=== PATIENT | male | born 1960 | race Caucasian/White ===

== ENCOUNTER 2017-06-16 14:46 | Observation (INO) ==
[2017-06-16] MEDS ORDERED: Piperacillin/Tazobactam 3.375 GM in Water for inj. (sterile) 20 ML IVP ONE (17:07)
--- NOTE | 2017-06-16 17:10 | Emergency Department Note ---
Disposition Clinical Impression: Diabetic foot infection Cellulitis Qualifiers: Site of cellulitis: extremity Site of cellulitis of extremity: lower extremity Laterality: left Qualified Code(s): L03.116 - Cellulitis of left lower limb Disposition: Admitted As Inpatient Condition: Good Referrals: Maverick Zarate MD [Primary Care Provider] - Forms: ED Satisfaction Letter General Adult HPI - General Chief complaint: ED Extremity Problem,Nontraumatic Stated complaint: Foot ulcer Time Seen by Provider: 06/16/17 16:41 Source: patient, family Limitations: no limitations Nursing Notes Reviewed: Yes Vital Signs Reviewed: Yes - History of Present Illness HPI Narrative: 57 y/o male who reports that he has had a foot wound on his left foot for 2 weeks. He has diabetes and neuropathy but has not had chronic foot wounds before. Went to see Dr Samaniego today with podiatry and was sent to the ED for admission. He reports Dr Samaniego started to debride the wound and stopped when he decided it would be best to do in the OR tomorrow. Was sent for admission. Redness is present on the foot only. Only other medical problem is HTN. He does not have much pain at rest. no fever. Otherwise feeling well. No leg pain or redness. Pain Scale: 0 Improves with: nothing Worsens with: other (shoes) Associated symptoms: Reports: denies other symptoms Treatments Prior to Arrival: none - Related Data Home Medications Medication Instructions Recorded Confirmed Glimepiride 04/02/15 04/02/15 Kombiglyze Xr 2.5-1,000 mg Tab 04/02/15 04/02/15 Allergies Allergy/AdvReac Type Severity Reaction Status Date / Time No Known Allergies Allergy Verified 04/02/15 11:08 All systems ED: reviewed and negative except as stated. Constitutional: Denies: fever ENT ED: Denies: throat pain Cardiovascular: Denies: chest pain Respiratory: Denies: cough Integumentary: Reports: rash Hematological/Lymphatic: Denies: easy bleeding Past Medical History - Past Medical History Medical history: Reports: diabetes, hypertension Psychiatric history: Reports: no psych history - Social History Smoking Status: Never smoker Smokeless Tobacco Status: No Alcohol use: Reports: none Drug use: Reports: none Physical Exam - General Limitations: no limitations General appearance: alert - Head Head exam: atraumatic - Eye Eye exam: Present: normal appearance, PERRL - ENT ENT exam: normal exam, normal oropharynx - Neck Neck exam: Present: normal inspection, full ROM - Chest Chest inspection: Present: normal inspection - Respiratory Respiratory exam: Present: normal lung sounds bilaterally. Absent: respiratory distress - Cardiovascular Cardiovascular exam: Present: regular rate, normal rhythm - Abdominal Exam Abdominal exam: Present: soft, Non-Tender - Extremities Exam Extremities exam: Present: other (diabetic foot ulcer with surrounding erythema/ edema to the lateral left foot at the level of the MTP. Erythema does not make it quite to the ankle. No crepitus.) - Neurological Exam Neurological exam: Present: alert, oriented X3 - Psychiatric Psychiatric exam: Present: normal affect, normal mood - Skin Skin exam: Present: warm Course Course Narrative: Spoke with Dr Braun from podiatry who recommended vancomycin and zosyn for antibiotic coverage. Will obtain foot radiograph and basic labs and admit to the hospitalist. Plan is for the OR tomorrow for debridement. Vitals are stable. He is very well appearing. Vital Signs Temperature 98.7 F 06/16/17 15:08 Pulse Rate 82 06/16/17 15:08 Respiratory Rate 18 06/16/17 15:08 Blood Pressure 150/81 06/16/17 15:08 O2 Sat by Pulse Oximetry 99 06/16/17 15:08 Temperature 98.7 F 06/16/17 15:08 Pulse Rate 87 06/16/17 16:50 Respiratory Rate 16 06/16/17 16:50 Blood Pressure 151/85 06/16/17 16:50 O2 Sat by Pulse Oximetry 96 06/16/17 16:50 Oxygen Delivery Oxygen Delivery Room Air Medical Decision Making - Medical Records Medical records reviewed: Yes I reviewed the patient's medical records. - Lab Data Lab results reviewed: Yes I reviewed the patient's lab results. - Radiology Data Radiology results reviewed: Yes I reviewed the patient's radiology results.
[2017-06-16] MEDS ORDERED: Vancomycin 1,500 MG in D5% in Water 250 ML IVPB ONE (17:30)
[2017-06-16 17:47] LABS: Basophils # 0.1 K/mcL (0.0-0.2); Basophils % 0.7 %; Eosinophils # 0.1 K/mcL (0.0-0.6); Eosinophils % 1.3 %; Hematocrit 44.4 % (37.5-50.1); Hemoglobin 15.1 g/dL (12.9-16.9); Immature Granulocytes % 0.5 % (0-4); Lymphocytes % 23.6 %; Mean Corpuscular Hemoglobin 31.1 pg (28.0-33.3); Mean Corpuscular Volume 91.4 fL (83.0-100.0); Mean Platelet Volume 9.6 fL (9.4-12.4); Monocytes # 0.9 K/mcL (0.0-1.3); Monocytes % 10.7 %; Neutrophils # 5.4 K/mcL (1.6-8.9); Platelet Count 303 K/mcL (140-400); Red Blood Count 4.86 M/mcL (4.19-5.50); Red Cell Distribution Width 11.9 % (11.5-14.5); Segmented Neutrophils % 63.2 %
[2017-06-16 18:02] LABS: BUN/Creatinine Ratio 28 (6-26); Blood Urea Nitrogen 23 mg/dL (6-20); Calcium 10.1 mg/dL (8.6-10.3); Carbon Dioxide 28 mEq/L (23-29); Chloride 101 mEq/L (98-107); Glucose 113 mg/dL (70-105); Osmolality,Calculated 288 (280-300); Potassium 4.1 mEq/L (3.5-5.1); Sodium 137 mEq/L (136-145); eGFR For African Americans > 60 (> 60); eGFR For Non-African Americans > 60 (> 60)
--- NOTE | 2017-06-16 18:02 | Emergency Department Note ---
START Narrative - START START: I examined this patient and my medical decision-making was reviewed with the Resident Physician. I agree with the documented findings, disposition and treatment plan as described except to the extent set forth below. admit to hospitalist for this foot ulcer. no gas formation. podiatry is aware and have been consulted antibiotics are started
[2017-06-16] MEDS ORDERED: *HR* Dextrose 50 % in Water (Syg) 50 ML SYRINGE IVP PRN (18:54)
[2017-06-16] MEDS ORDERED: D5% in Water 1,000 ML IVC PRN (18:54)
[2017-06-16] MEDS ORDERED: Dextrose Gel 15 GM/37.5 ML TUBE PO PRN ×2 (18:54)
[2017-06-16] MEDS ORDERED: Naloxone 0.4 MG/ML INJ IVP PRN (18:54)
--- NOTE | 2017-06-16 19:05 | Internal Med History&Physical ---
<Jacobo Blanco - Last Filed: 06/16/17 19:26> Date of Encounter: 06/16/17 Time of Encounter: 19:01 Assessment and Plan (1) Diabetic foot infection Current visit: Yes Status: Acute Patient presents today from Dr. Samaniego's office with a left diabetic foot ulcer with cellulitis He reports he has had this ulcer for approximately the last 3 weeks has been getting progressively worse He is a Dr. Samaniego's office today for debridement however, during the debridement Dr. Samaniego decided to stop as he thought it was best to finish debridement in the OR tomorrow He has poorly controlled hyperglycemia. A small amount of clear drainage noted. No SIRS criteria met; not sepsis -Vancomycin with pharmacy to dose, and cefepime -Pain management with oxycodone -Wound cultures aerobic and anaerobic- follow and adjust ATB as appropriate (2) Cellulitis Current visit: Yes Status: Acute Cellulitis of Lt diabetic foot ulcer. Dr. Samaniego to see in the morning to take him to the OR for surgical debridement. See further assessment and plan above Qualifiers: Site of cellulitis: extremity Site of cellulitis of extremity: lower extremity Laterality: left Qualified Code(s): L03.116 - Cellulitis of left lower limb (3) HTN (hypertension) Current visit: Yes Status: Acute Mildly elevated with SBP's in the 150's. Continue amlodipine and BB Qualifiers: Hypertension type: essential hypertension Qualified Code(s): I10 - Essential (primary) hypertension (4) DM (diabetes mellitus) Current visit: Yes Status: Acute Start LSSIC with AC/HS accuckeck and diabetic diet with NPO at midnight Qualifiers: Diabetes mellitus type: type 2 Diabetes mellitus complication status: with skin complications Diabetes mellitus complication detail: with foot ulcer Diabetes mellitus skilled nursing insulin use: without intermodal dispatcher use Qualified Code( s): E11.621 - Type 2 diabetes mellitus with foot ulcer; L97.509 - Non-pressure chronic ulcer of other part of unspecified foot with unspecified severity; L97.509 - Non-pressure chronic ulcer of other part of unspecified foot with unspecified severity; L97.509 - Non-pressure chronic ulcer of other part of unspecified foot with unspecified severity; L97.509 - Non-pressure chronic ulcer of other part of unspecified foot with unspecified severity (5) DVT prophylaxis Current visit: Yes Status: Acute EPCD's for tonight additional DVT prophylaxis per podiatry recommendations Internal Medicine - H&P: HPI Chief complaint: left foot diabetic ulcer Admitted From: Home Plans for Post Hospital Care: Home History of present illness: Mr. Reese is a 57 year old male with PMH of HTN, diabetes and neuropathy. He presents today with a three-week history of an ulcer of the lateral aspect of the left fifth toe. He reports that he was at Dr. Portillo office today for debridement during the procedure. Gemcitabine was best to proceed with debridement tomorrow in the OR. He was then sent to [facility] ED for admission. There is a stage III pressure ulcer present on lateral aspect of left foot with redness and induration. The patient is reporting intolerable pain at rest with an increase in pain and activity. Denies any fever, chills, rigors, left leg pain redness or swelling. Past Med Surg Social Fam HX - Past Medical History Medical history: diabetes, hypertension Psychiatric history: no psych history - Social History Smoking Status: Never smoker Smokeless Tobacco Status: No Alcohol use: none Drug use: none - Additional Family History Additional family history: Noncontributory Internal Medicine - H&P: Meds Amlodipine Besylate [Amlodipine Besylate] 10 mg PO DAILY 06/16/17 [History] Canagliflozin [Invokana] 300 mg PO DAILY 06/16/17 [History] Carvedilol Phosphate [Coreg Cr] 40 mg PO DAILY 06/16/17 [History] Esomeprazole Magnesium [Nexium] 40 mg PO DAILY 06/16/17 [History] Losartan/Hydrochlorothiazide [Losartan-Hctz 100-25 mg Tab] 1 tab PO DAILY [History] Sitagliptin Phos/Metformin HCl [Janumet Xr 50-500 mg Tablet] 1 tab PO BID [History] Terazosin HCl 2 mg PO DAILY 06/16/17 [History] 3 Allergy/AdvReac Type Severity Reaction Status Date / Time No Known Allergies Allergy Verified 04/02/15 11:08 All Systems PM: A 10-system review of systems was performed and is negative for pertinent findings except as documented above in the HPI. - Constitutional Constitutional: as per HPI - Cardiovascular Cardiovascular ROS IM: no chest pain, no diaphoresis, no dyspnea, no lightheadedness, no palpitations, no syncope - Respiratory Respiratory: no cough, no dyspnea, no wheezing, no excessive phlegm production - Gastrointestinal Gastrointestinal: no abdominal pain, no diarrhea, no hematemesis, no hematochezia, no melena, no nausea, no vomiting - Musculoskeletal Musculoskeletal ROS IM: no numbness, no tingling - Integumentary Integumentary IM: as per HPI - Neurological Neurological ROS: no confusion, no convulsions, no focal weakness, no numbness, no tingling, no tremor(s) - Constitutional Vitals: Temp Pulse Resp BP Pulse Ox 98.7 F 87 16 151/85 96 06/16/17 15:08 06/16/17 16:50 06/16/17 16:50 06/16/17 16:50 06/16/17 16:50 General appearance: Present: cooperative, A&O X 3, no acute distress, answers questions appropriately - Respiratory Respiratory exam: Present: CTAB. Absent: accessory muscle use, rales, rhonchi, wheezes - Extremities Exam Extremities exam: Present: warm, radial pulses palpable and symmetrical. Absent : calf tenderness, cyanotic, pedal edema - Expanded Lower Extremities Exam Foot/Toe exam: Present: swelling, tenderness, tenderness at base of 5th metatarsal - Neurological Exam Neurological exam: Present: alert, oriented X3. Absent: facial droop, speech deficit - Skin Skin exam: Present: erythema, warm - Expanded Skin Exam Full body front and back image: 1 - Erythema, warmth, and induration surrounding a diabetic ulcer; cellulitis Internal Med - H&P Results - Labs CBC & Chem 7: 06/16/17 17:21 06/16/17 17:21 - Impressions Impressions Foot X-Ray 06/16/17 16:59 IMPRESSION: Soft tissue defect over the lateral aspect of the foot, compatible with ulcer. Underlying this site, there is a lucency with irregular sclerosis involving the base the 5th metatarsal. Although findings could represent a chronic nonunited fracture, findings raise the possibility of osteomyelitis. Recommend further evaluation with MRI. D/ / Rocael Velez MD / Rocael Velez MD Interpreting Provider: Rocael Velez MD <Saw Tan H - Last Filed: 06/16/17 19:29> Date of Encounter: 06/16/17 Internal Medicine - H&P: HPI History of present illness: Mr. Reese is a 57 year old male All Systems PM: A 10-system review of systems was performed and is negative for pertinent findings except as documented above in the HPI. - Constitutional Vitals: Temp Pulse Resp BP Pulse Ox 98.7 F 87 16 151/85 96 06/16/17 15:08 06/16/17 16:50 06/16/17 16:50 06/16/17 16:50 06/16/17 16:50 Internal Med - H&P Results - Labs CBC & Chem 7: 06/16/17 17:21 06/16/17 17:21 - Attending Attestation GERD, continue omeprazole Time spent on this admission 40 minutes I have personally performed a face to face evaluation on this patient. I have reviewed and agree with the care plan. History and Exam by me shows:
--- NOTE | 2017-06-16 20:24 | Anesthesia Evaluation PreOp ---
<Herb Jain - Last Filed: 06/16/17 20:40> Date of Encounter: 06/16/17 Time of Encounter: 20:22 - Past History Planned Operation: Incision to bone cortex Left Foot Cardiac History: HTN Pulmonary History: Denies Any Significant HX DOCKING PILOT History: Denies Any Significant HX Other Medical History: Diabetes Type II Anesthesia History: No Prior Anesthetic Complications Alcohol Use: none Drug use: none Medications and Allergies Amlodipine Besylate [Amlodipine Besylate] 10 mg PO DAILY 06/16/17 [History] Canagliflozin [Invokana] 300 mg PO DAILY 06/16/17 [History] Carvedilol Phosphate [Coreg Cr] 40 mg PO DAILY 06/16/17 [History] Esomeprazole Magnesium [Nexium] 40 mg PO DAILY 06/16/17 [History] Losartan/Hydrochlorothiazide [Losartan-Hctz 100-25 mg Tab] 1 tab PO DAILY [History] Sitagliptin Phos/Metformin HCl [Janumet Xr 50-500 mg Tablet] 1 tab PO BID [History] Terazosin HCl 2 mg PO DAILY 06/16/17 [History] 3 Allergy/AdvReac Type Severity Reaction Status Date / Time No Known Allergies Allergy Verified 04/02/15 11:08 - Meds/Allergy Pre-op Review Medications Reviewed: Yes Allergies Reviewed: Yes Beta Blockers on Current Med List: Yes If Beta Blockers taken, Date/Time (Last Dose taken): On H&P, not on MAR Anesthesia Results - Labs 06/16/17 17:21 06/16/17 17:21 Anesthesia Exam O2 Sat Height 1.68 m Height 1.68 m Weight 90.537 kg Weight 90.718 kg O2 Sat by Pulse Oximetry 94 O2 Sat by Pulse Oximetry 96 O2 Sat by Pulse Oximetry 99 Vital Signs Temp Pulse Resp BP Pulse Ox 98.7 F 82 18 150/81 99 06/16/17 15:08 06/16/17 15:08 06/16/17 15:08 06/16/17 15:08 06/16/17 15:08 - HEENT Pupil (Motor): Pupils equal, EOMI Mallampati: II Teeth: Normal Oral Opening: Greater than 3 - DOCKING PILOT LOC: Oriented DOCKING PILOT Motor: Normal RUE, Normal LUE, Normal RLE, Normal LLE, Normal Face DOCKING PILOT Sensory: Normal: RUE, LUE, RLE, LLE, Face - Cardiac Rhythm: Regular Murmur: None JVD: No Carotid Bruit: No - Pulmonary Breath Sounds: bilateral Clear Respiratory Effort: Symmetrical Anesthesia Assess/Plan ASA Score: 2 Modified Nell Scale for Level of Consciousness: Cooperative, oriented, and tranquil Anesthetic Plan: MAC Autologous Blood: Yes Monitoring Plan: Standard Monitors Recovery Plan: Other <Ashtyn Rincon - Last Filed: 06/17/17 16:13> Date of Encounter: 06/17/17 - Meds/Allergy Pre-op Review If Beta Blockers taken, Date/Time (Last Dose taken): Metoprolol 06/17/2017 @ 0737 Anesthesia Results - Labs 06/17/17 05:33 06/17/17 05:33 Laboratory Results Impressions Foot X-Ray 06/16/17 16:59 IMPRESSION: Soft tissue defect over the lateral aspect of the foot, compatible with ulcer. Underlying this site, there is a lucency with irregular sclerosis involving the base the 5th metatarsal. Although findings could represent a chronic nonunited fracture, findings raise the possibility of osteomyelitis. Recommend further evaluation with MRI. D/ / Rocael Velez MD / Rocael Velez MD Interpreting Provider: Rocael Velez MD Anesthesia Exam Vital Signs Temp Pulse Resp BP Pulse Ox 06/17/17 14:27 97.9 F 76 16 129/77 98 06/17/17 10:19 98.0 F 71 16 122/80 94 06/17/17 06:52 97.9 F 74 16 143/82 96 06/17/17 04:23 98.1 F 78 14 152/79 96 06/16/17 23:49 98.2 F 76 14 133/73 96 06/16/17 20:20 74 135/73 90 06/16/17 20:08 98.0 F 79 14 162/70 94 06/16/17 19:29 16 146/85 06/16/17 16:50 87 16 151/85 96 Intake and Output 06/17/17 06/17/17 06/17/17 07:59 15:59 23:59 Intake Total 260 / 260 Output Total 1175 / 1175 425 / 425 Balance -1155 / -1155 -165 / -165 Intake: IV Fluids 260 / 260 Maxipime 1,000 MG In Water for inj. (sterile) 10 ML @ 150 mls/ hr IVP Q8HR [facility] Rx#:[id number] Vancocin 1,250 MG In Dextrose 5 250 / 250 % 250 ML @ 166.667 mls/hr IVPB Q12H [facility] Rx#:[id number] Oral 0 / 0 0 / 0 Output: Urine 1175 / 1175 425 / 425 Other: Meal NPO Percent of Meal Consumed 0% Stool Size Large Large Stool Consistency soft soft formed formed Stool Characteristics Normal for Patient Stool Color Brown Brown # Bowel Movements 1 1 Weight 90.265 kg Blood Glucose* 119 123 Patient Weight 06/17/17 23:59 Weight 90.265 kg Height: 5'6' Weight: 199# BMI = 32
[2017-06-16] MEDS ORDERED: Insulin LISPRO 300 UNITS/3 ML VIAL SQ SCH (21:00)
[2017-06-17 05:54] LABS: Hematocrit 41.6 % (37.5-50.1); Hemoglobin 14.3 g/dL (12.9-16.9); Mean Corpuscular HGB Conc 34.4 g/dL (31.6-35.5); Mean Corpuscular Hemoglobin 30.9 pg (28.0-33.3); Mean Corpuscular Volume 89.8 fL (83.0-100.0); Mean Platelet Volume 9.5 fL (9.4-12.4); Platelet Count 253 K/mcL (140-400); Red Blood Count 4.63 M/mcL (4.19-5.50); Red Cell Distribution Width 11.9 % (11.5-14.5)
[2017-06-17 06:05] LABS: BUN/Creatinine Ratio 25 (6-26); Blood Urea Nitrogen 18 mg/dL (6-20); Calcium 9.2 mg/dL (8.6-10.3); Carbon Dioxide 25 mEq/L (23-29); Chloride 104 mEq/L (98-107); Glucose 122 mg/dL (70-105); Osmolality,Calculated 285 (280-300); Potassium 3.8 mEq/L (3.5-5.1); Sodium 136 mEq/L (136-145); eGFR For African Americans > 60 (> 60); eGFR For Non-African Americans > 60 (> 60)
[2017-06-17] MEDS: Cefepime HCl 1,000 MG in Water for inj. (sterile) 10 ML IVP SCH ×3 (07:38→15:43)
[2017-06-17] MEDS: Insulin LISPRO 300 UNITS/3 ML VIAL SQ SCH ×4 (07:56→22:29)
--- NOTE | 2017-06-17 08:03 | Podiatry Consult Note ---
Date of Encounter: 06/17/17 Time of Encounter: 08:01 Assessment and Plan (1) Foot ulcer Current visit: Yes Status: Acute Assessment: #1 diabetic foot ulcer with spreading cellulitis left side lateral # 5 metatarsal two-week duration #2 spreading cellulitis left foot #3 diabetes with neuropathy multiple comorbidities outlined in history #4 Unrealized fracture fifth metatarsal base healing/patient unaware of fracture/trauma/injury. Plan: #1 agree with present antibiotic therapy cultures taken in clinic prior to beginning antibiotic therapy #2 will need formal debridement to determine dimensions of wound #3 will need deep wound cultures as well Qualifiers: Laterality: left Non-pressure ulcer stage: with fat layer exposed Qualified Code(s): L97.522 - Non-pressure chronic ulcer of other part of left foot with fat layer exposed (2) Foot ulcer with fat layer exposed Current visit: Yes Status: Acute Qualifiers: Laterality: left Qualified Code(s): L97.522 - Non-pressure chronic ulcer of other part of left foot with fat layer exposed (3) Diabetic foot infection Current visit: Yes Status: Acute History of Present Illness Chief complaint: Left foot infection HPI: Mr. Reese is a 57 year old male, presented to podiatry clinic yesterday with a 2 week history of a foot infection. His ulceration on the lateral aspect of his left midfoot unknown etiology. Patient states his wound has been there for at least 2 weeks. He presents with his today. No history of fever or chills nausea vomiting. No history of trauma although I suspect a fracture and it was proven by radiograph the patient still has a significant ulceration with spreading cellulitis beyond 2 cm from the wound distally proximally and medially. Patient stated it was too "painful" to allow me to completely debride the wound and clinic. Coupled with the fact via spreading cellulitis beyond 2 cm indications for hospitalization are present. We will debride the wound formally under anesthesia which will allow me to gain true dimensions of the wound. Cultures were taken today. He was sent to ED for further evaluation and likely admission for intravenous antibiotics and formal debridement Past Med Surg Social Fam HX - Past Medical History Medical history: diabetes, hypertension Psychiatric history: no psych history - Social History Smoking Status: Never smoker Smokeless Tobacco Status: No Alcohol use: none Drug use: none - Family History Mother Hx Family Neuromuscular Disorders: Yes (stroke) Father Hx Family Medical Disorders: Yes (DVT) Medications and Allergies Amlodipine Besylate [Amlodipine Besylate] 10 mg PO DAILY 06/16/17 [History] Canagliflozin [Invokana] 300 mg PO DAILY 06/16/17 [History] Carvedilol Phosphate [Coreg Cr] 40 mg PO DAILY 06/16/17 [History] Esomeprazole Magnesium [Nexium] 40 mg PO DAILY 06/16/17 [History] Losartan/Hydrochlorothiazide [Losartan-Hctz 100-25 mg Tab] 1 tab PO DAILY [History] Sitagliptin Phos/Metformin HCl [Janumet Xr 50-500 mg Tablet] 1 tab PO BID [History] Terazosin HCl 2 mg PO DAILY 06/16/17 [History] 3 Allergy/AdvReac Type Severity Reaction Status Date / Time No Known Allergies Allergy Verified 04/02/15 11:08 All Systems Reviewed: A 10-system review of systems was performed and is negative for pertinent findings except as documented above in the HPI. Physical Exam - Constitutional Vitals: Temp Pulse Resp BP Pulse Ox 97.9 F 74 16 143/82 96 06/17/17 06:52 06/17/17 06:52 06/17/17 06:52 06/17/17 06:52 06/17/17 06:52 General appearance: average body habitus - Extremities Exam Extremities exam: Present: normal capillary refill, pedal edema - Expanded Lower Extremities Exam Foot/Toe exam: Present: tenderness at base of 5th metatarsal Neuro vascular tendon exam: Present: decreased fine/light touch, no vascular compromise - Neurological Exam Additional comments: Diminished epicritic and vibratory sensation and loss of protective sensation the toes to the ankle of the left and right foot - Skin Additional comments: 2.5 cm diameter ulceration lateral aspect the base of fifth metatarsal left foot with full-thickness necrosis/unstageable spreading cellulitis beyond 2.5 cm distally medially approximately. Plantar aspect of the foot is spared of any cellulitis or fluctuance. - Vascular Capillary Refill: less than 3 seconds - Ankle & Foot Appearance ankle: swelling, erythema Foot appearance: erythema, abrasion, other (Adducted left forefoot) Results - Labs Result Diagrams: 06/17/17 05:33 06/17/17 05:33 Labs: Abnormal lab results Glucose 122 mg/dL (70-105) H 06/17/17 05:33 POC Glucose 122 (58-89) H 06/17/17 05:50 H & H 06/17/17 Range/Units 05:33 Hgb 14.3 (12.9-16.9) g/dL Hct 41.6 (37.5-50.1) % All other labs normal. - Diagnostic results Ankle/Foot x-ray: image reviewed Consult Discharge Plan - Plan Referrals: Maverick Zarate MD [Primary Care Provider] -
--- NOTE | 2017-06-17 08:59 | Internal Med Progress Note ---
Date of Encounter: 06/17/17 Time of Encounter: 08:57 - Assessment and plan (1) Diabetic foot infection Current Visit: Yes Status: Acute Assessment and plan: diabetic foot ulcer with spreading cellulitis left side lateral #5 metatarsal Continue vancomycin and cefepime day #2 Surgical procedure later today by Dr. Samaniego Cultures pending Continue IV fluids, nothing by mouth for now (2) Cellulitis Current Visit: Yes Status: Acute Qualifiers: Site of cellulitis: extremity Site of cellulitis of extremity: lower extremity Laterality: left Qualified Code(s): L03.116 - Cellulitis of left lower limb (3) HTN (hypertension) Current Visit: Yes Status: Acute Assessment and plan: Stable on Terazosin and amlodipine Qualifiers: Hypertension type: essential hypertension Qualified Code(s): I10 - Essential (primary) hypertension (4) DM (diabetes mellitus) Current Visit: Yes Status: Acute Assessment and plan: Continue insulin sliding scale for now Qualifiers: Diabetes mellitus type: type 2 Diabetes mellitus complication status: with skin complications Diabetes mellitus complication detail: with foot ulcer Diabetes mellitus chcf insulin use: without terminal block assembler use Qualified Code( s): E11.621 - Type 2 diabetes mellitus with foot ulcer; L97.509 - Non-pressure chronic ulcer of other part of unspecified foot with unspecified severity; L97.509 - Non-pressure chronic ulcer of other part of unspecified foot with unspecified severity; L97.509 - Non-pressure chronic ulcer of other part of unspecified foot with unspecified severity; L97.509 - Non-pressure chronic ulcer of other part of unspecified foot with unspecified severity - Subjective Interval history: Denies any pain, no fevers overnight, no chest pain or shortness of breath, no abdominal pain, no diarrhea or dysuria - Constitutional Vitals: Temp Pulse Resp BP Pulse Ox 97.9 F 74 16 143/82 96 06/17/17 06:52 06/17/17 06:52 06/17/17 06:52 06/17/17 06:52 06/17/17 06:52 General appearance: Present: cooperative, A&O X 3, no acute distress, answers questions appropriately - Head Head exam: Present: atraumatic, normocephalic - Eye Eye exam: Present: PERRL, conjuntiva pink, sclera anicteric Pupils: Present: PERRL - Neck Neck exam general surgery: Present: supple, trachea midline. Absent: lymphadenopathy - Respiratory Respiratory exam: Present: CTAB. Absent: accessory muscle use, rales, rhonchi, wheezes - Cardiovascular Cardiovascular exam: Present: RRR, +S1, +S2. Absent: diastolic murmur, gallop, rubs, systolic murmur - GI/Abdominal GI/Abdominal exam: Present: normal bowel sounds, soft, no peritoneal signs. Absent: distended, tenderness - Extremities Exam Extremities exam: Present: warm, radial pulses palpable and symmetrical. Absent : calf tenderness, cyanotic, pedal edema - Neurological Exam Neurological exam: Present: CN II-XII intact, oriented X3, no focal deficits. Absent: pronater drift, facial droop, speech deficit - Skin Skin exam: Present: dry. Absent: intact Additional comments: 2.5 cm diameter ulceration lateral aspect the base of fifth metatarsal left foot with full-thickness necrosis/unstageable spreading cellulitis beyond 2.5 cm distally medially approximately. Surrounding erythema improving Internal Medicine: Result - Labs CBC & Chem 7: 06/17/17 05:33 06/17/17 05:33 Labs: Short CBC 06/17/17 Range/Units 05:33 WBC 6.2 (4.3-11.1) K/mcL Hgb 14.3 (12.9-16.9) g/dL Hct 41.6 (37.5-50.1) % Plt Count 253 (140-400) K/mcL BMP 06/17/17 05:33 Sodium 136 Potassium 3.8 Chloride 104 Carbon Dioxide 25 BUN 18 Creatinine 0.73 Glucose 122 H Calcium 9.2 Consult Discharge Plan - Plan Referrals: Maverick Zarate MD [Primary Care Provider] -
[2017-06-17] MEDS ORDERED: Vancomycin 1,250 MG in D5% in Water 250 ML IVPB SCH ×2 (09:00)
[2017-06-17] MEDS ORDERED: amLODIPine 5 MG TABLET PO SCH (09:00)
[2017-06-17] MEDS ORDERED: Bupivacaine/Clonidine Syringe 1 EACH SYRINGE ONE ×2 (16:54→17:39)
[2017-06-17] MEDS ORDERED: *HR* Midazolam HCl 2 MG/2 ML VIAL ONE (17:09)
--- NOTE | 2017-06-17 18:12 | Orthopedic Operative Note ---
Date of procedure: 06/17/17 Pre-op diagnosis: Infected foot ulcer left Post-op diagnosis: same Procedure: 06/17/17 18:08 #1 incision and drainage multiple planes left foot #2 application of wound VAC Implants: None Complications: None Anesthesia: MAC, local Local Anesthetics: 0.25% Sensorcaine HCL SubQ (cc) Surgeon: Herb Samaniego Was there an commercial real estate assistant present: No Estimated blood loss (cc): 5 Tourniquet Time (Minutes): 0 Specimen: Swab cultures aerobe and anaerobe plus tissue cultures left foot Condition: stable Disposition: floor Procedure in Detail: 06/17/17 18:09 Detail summary of procedure: Patient brought to the surgical suite. Signed procedure performed. Patient was then transferred to the surgical table positioned properly safely securely. Left foot was elevated on a foam block. No tourniquet was used. Left ankle was then prepped with alcohol 3 times. Anesthetic timeout taken. Patient was sedated. Target block was carried out left ankle no complications. Left foot was then prepped and draped in usual sterile manner. Surgical timeout taken. The wound measured approximately 2.2 cm in diameter. A standard linear incision was begun midshaft fifth metatarsal and brought through the wound proximally for another 2 cm. The incision was approximately 7.5 cm in total length. The wound was thoroughly debrided using a pickup and Metzenbaum scissor dorsally plantarly distally and proximally to the deep fascial layer. Necrotic tissue was then sent in a sterile cup to microbiology for identification and sensitivities. Swab cultures were then taken aerobe and anaerobe. The wound was then thoroughly debrided using ultrasonics Misonic debrider. Satisfied all necrotic tissue was removed down to the level of the deep fascia in multiple planes, the wound was thoroughly irrigated again with saline. The ulcer wound edges were then excised approximately 2 mm away from the ulcer/wound edges to create a clean wound edge skin edge itself. Satisfied the wound was completely debrided without any evidence of necrosis or loculated abscess or purulence, the wound was thoroughly irrigated again using ultrasonics Misonix debrider and then debrided one last time. Satisfied the wound was clean distal and proximal incisions were closed with interrupted sutures of 3-0 Prolene. A wound VAC was applied according protocol. Was found to function properly. Estimated blood loss less than 5 10 mL complications encountered none. Patient was then sent to the operating room in good condition with vital signs stable. 06/26/17 13:10
[2017-06-17] MEDS ORDERED: *HR* Heparin 5,000 UNIT/ML VIAL SQ SCH (18:56)
[2017-06-17] MEDS ORDERED: Naloxone 0.4 MG/ML INJ IVP PRN (18:57)
[2017-06-17] MEDS ORDERED: D5% in Water 1,000 ML IVC PRN (18:57)
[2017-06-17] MEDS ORDERED: *HR* Dextrose 50 % in Water (Syg) 50 ML SYRINGE IVP PRN (18:57)
[2017-06-17] MEDS ORDERED: Dextrose Gel 15 GM/37.5 ML TUBE PO PRN ×2 (18:57)
[2017-06-17] MEDS: Vancomycin 1,250 MG in D5% in Water 250 ML IVPB SCH (22:30)
[2017-06-18] MEDS: Cefepime HCl 1,000 MG in Water for inj. (sterile) 10 ML IVP SCH ×2 (00:12→09:44)
[2017-06-18] MEDS: Insulin LISPRO 300 UNITS/3 ML VIAL SQ SCH ×4 (07:22→17:06)
--- NOTE | 2017-06-18 09:18 | Internal Med Progress Note ---
Date of Encounter: 06/18/17 Time of Encounter: 09:16 - Assessment and plan (1) Diabetic foot infection Current Visit: Yes Status: Acute Assessment and plan: diabetic foot ulcer with spreading acute cellulitis left side lateral #5 metatarsal status post deep I&D in multiple planes by Dr. Samaniego, wound VAC application Continue vancomycin and cefepime day #3 Cultures pending Continue IV fluids X-ray of the foot showed: Soft tissue defect over the lateral aspect of the foot , compatible with ulcer. Underlying this site, there is a lucency with irregular sclerosis involving the base the 5th metatarsal. Although findings could represent a chronic nonunited fracture, findings raise the possibility of osteomyelitis. Recommend further evaluation with MRI. (2) Cellulitis Current Visit: Yes Status: Acute Qualifiers: Site of cellulitis: extremity Site of cellulitis of extremity: lower extremity Laterality: left Qualified Code(s): L03.116 - Cellulitis of left lower limb (3) HTN (hypertension) Current Visit: Yes Status: Acute Assessment and plan: Stable on Terazosin and amlodipine Qualifiers: Hypertension type: essential hypertension Qualified Code(s): I10 - Essential (primary) hypertension (4) DM (diabetes mellitus) Current Visit: Yes Status: Acute Assessment and plan: Continue insulin sliding scale for now Qualifiers: Diabetes mellitus type: type 2 Diabetes mellitus complication status: with skin complications Diabetes mellitus complication detail: with foot ulcer Diabetes mellitus snf insulin use: without snf use Qualified Code( s): E11.621 - Type 2 diabetes mellitus with foot ulcer; L97.509 - Non-pressure chronic ulcer of other part of unspecified foot with unspecified severity; L97.509 - Non-pressure chronic ulcer of other part of unspecified foot with unspecified severity; L97.509 - Non-pressure chronic ulcer of other part of unspecified foot with unspecified severity; L97.509 - Non-pressure chronic ulcer of other part of unspecified foot with unspecified severity - Subjective Interval history: NO complaints. Denies pain, no fevers overnight, no chest pain or shortness of breath, no abdominal pain, no diarrhea or dysuria - Constitutional Vitals: Temp Pulse Resp BP Pulse Ox 97.6 F 77 16 151/80 97 06/18/17 06:34 06/18/17 06:34 06/18/17 06:34 06/18/17 06:34 06/18/17 06:34 General appearance: Present: cooperative, A&O X 3, no acute distress, answers questions appropriately - Head Head exam: Present: atraumatic, normocephalic - Eye Eye exam: Present: PERRL, conjuntiva pink, sclera anicteric Pupils: Present: PERRL - Neck Neck exam general surgery: Present: supple, trachea midline. Absent: lymphadenopathy - Respiratory Respiratory exam: Present: CTAB. Absent: accessory muscle use, rales, rhonchi, wheezes - Cardiovascular Cardiovascular exam: Present: RRR, +S1, +S2. Absent: diastolic murmur, gallop, rubs, systolic murmur - GI/Abdominal GI/Abdominal exam: Present: normal bowel sounds, soft, no peritoneal signs. Absent: distended, tenderness - Extremities Exam Extremities exam: Present: warm, radial pulses palpable and symmetrical. Absent : calf tenderness, cyanotic, pedal edema - Neurological Exam Neurological exam: Present: CN II-XII intact, oriented X3, no focal deficits. Absent: pronater drift, facial droop, speech deficit Additional comments: wound vac in place in the left foot - Skin Skin exam: Present: dry, intact Internal Medicine: Result - Labs CBC & Chem 7: 06/17/17 05:33 06/17/17 05:33 Consult Discharge Plan - Plan Referrals: Maverick Zarate MD [Primary Care Provider] -
[2017-06-18] MEDS: amLODIPine 5 MG TABLET PO SCH (09:44)
[2017-06-18] MEDS: Vancomycin 1,250 MG in D5% in Water 250 ML IVPB SCH (09:45)
[2017-06-18] MEDS: Doxycycline 100 MG in 0.9 % Sodium Chloride Mini Bag 100 ML IVPB SCH ×2 (11:44→23:44)
--- NOTE | 2017-06-18 12:52 | Podiatry Progress Note ---
Date of Encounter: 06/18/17 Time of Encounter: 12:00 - Assessment and Plan (1) Diabetic foot infection Current Visit: Yes Status: Acute Patient underwent I&D of left foot wound on 06/17/17 per Wound vac was applied in OR- Will need SW on board, patient will go home with vac therapy and [facility] for changes- likely 4-6 weeks- small black simplace sponge tracked to top of foot, 125mmHg suction. Await return of intra op cultures - Patient will likely need to go home on PO cleocin 300mg TID- pending cultures may additionally need PO Levaquin. 2 weeks PO antibiotics Will also need OTC probiotic or lactobacillis PO BID prescription on discharge Will need to be seen in wound care weekly on Wednesdays with Will have bracing department bring up cast boot for ambulation. Patient may ambulate with cast boot only. Not to ambulate without. Patient undergoing cardio echo today d/t pitting edema of BLE- Appreciate internal medicine workup. (2) Cellulitis Current Visit: Yes Status: Acute See antibiotic therapy as recommended above Qualifiers: Site of cellulitis: extremity Site of cellulitis of extremity: lower extremity Laterality: left Qualified Code(s): L03.116 - Cellulitis of left lower limb Subjective Interval history: Mr. Reese is a 57 year old male, presented to podiatry clinic to with a 2 week history of foot ulceration of the left foot and infection. The patient was admitted to the hospital for antibiotic therapy and underwent an I& D of the left foot with application of a wound vac yesterday 06/17/17 per . Upon arrival to the room today patient is resting comfortably, denies any pain. States he feels fine. Denies f/c/n/v/ or flu like symptoms. Denies calf pain or SOB Objective - Vital Signs Vital Signs: Vital Signs Temp Pulse Resp BP Pulse Ox 06/18/17 10:30 97.8 F 65 16 153/76 95 06/18/17 06:34 97.6 F 77 16 151/80 97 06/18/17 03:50 97.9 F 72 15 138/76 94 06/17/17 22:44 98 F 69 17 138/80 06/17/17 21:50 98.0 F 75 14 119/62 97 06/17/17 21:20 98 F 75 18 119/62 97 06/17/17 20:21 97.8 F 76 17 143/82 06/17/17 19:44 97.6 F 76 97 06/17/17 19:00 97.5 F L 78 16 138/82 97 06/17/17 14:27 97.9 F 76 16 129/77 98 Intake and Output 06/17/17 06/18/17 06/18/17 23:59 07:59 15:59 Intake Total 0 / 0 500 / 500 490 / 490 Output Total 105 / 105 1000 / 1000 725 / 725 Balance -105 / -105 -500 / -500 -235 / -235 Intake: IV Fluids 260 / 260 10 Maxipime 1,000 MG In Water for inj. (sterile) 10 ML @ 150 mls/ hr IVP Q8HR [facility]LET Rx#:[id number] Vancocin 1,250 MG In Dextrose 5 250 / 250 % 250 ML @ 166.667 mls/hr IVPB Q12H H[facility]LET Rx#:[id number] Oral 0 / 0 240 / 240 480 / 480 Output: Urine 100 / 100 1000 / 1000 725 / 725 Estimated Blood Loss 5 / 5 Wound Drainage 0 / 0 0 / 0 Left Foot 0 / 0 0 / 0 Other: Meal NPO Dinner Percent of Meal Consumed 0% 100% # Voids 1 # Bowel Movements 0 0 Weight 89.947 kg Blood Glucose* 86 98 201 Patient Weight 06/18/17 23:59 Weight 89.947 kg - Exam Exam: Podiatry General Exam: General appearance: alert awake oriented X 3. Calm and pleasant, no acute distress.. Vascular: Pedal pulses +2/4 DP/PT , No evidence of cyanosis, pallor or rubor, Edema graded at 1+/4, Skin Temperature warm, No calf pain with manual compression. capillary refill time is immediate to digits. Neurologic: Sensation intact with moderate touch. Postop Exam: S/P.Wound vac intact to surgical site. Sealed. No drainage to canister. Minimal surrounding erythema. Patient reports no pain. - Lab Result Diagrams: 06/17/17 05:33 06/17/17 05:33 Labs: Abnormal lab results Glucose 122 mg/dL (70-105) H 06/17/17 05:33 POC Glucose 201 (58-89) H 06/18/17 11:37 Consult Discharge Plan - Plan Referrals: Maverick Zarate MD [Primary Care Provider] -
[2017-06-18] MEDS: *HR* Heparin 5,000 UNIT/ML VIAL SQ SCH (17:06)
[2017-06-18] MEDS ORDERED: Aminoglycoside Consult 1 EACH MC ONE (17:19)
--- NOTE | 2017-06-19 08:00 | Discharge Summary ---
Date of Encounter: 06/19/17 Time of Encounter: 07:57 - Discharge Diagnosis (1) Diabetic foot infection Priority: Primary Status: Acute Comments: diabetic foot ulcer with spreading acute cellulitis left side lateral #5 metatarsal status post deep I&D in multiple planes by Dr. Samaniego, wound VAC application (2) Cellulitis Priority: Primary Status: Acute Qualifiers: Site of cellulitis: extremity Site of cellulitis of extremity: lower extremity Laterality: left Qualified Code(s): L03.116 - Cellulitis of left lower limb (3) HTN (hypertension) Priority: Secondary Status: Acute Qualifiers: Hypertension type: essential hypertension Qualified Code(s): I10 - Essential (primary) hypertension (4) DM (diabetes mellitus) Priority: Secondary Status: Acute Qualifiers: Diabetes mellitus type: type 2 Diabetes mellitus complication status: with skin complications Diabetes mellitus complication detail: with foot ulcer Diabetes mellitus nursing scheduler insulin use: without jail use Qualified Code( s): E11.621 - Type 2 diabetes mellitus with foot ulcer; L97.509 - Non-pressure chronic ulcer of other part of unspecified foot with unspecified severity; L97.509 - Non-pressure chronic ulcer of other part of unspecified foot with unspecified severity; L97.509 - Non-pressure chronic ulcer of other part of unspecified foot with unspecified severity; L97.509 - Non-pressure chronic ulcer of other part of unspecified foot with unspecified severity - Discharge Medications Prescriptions: Doxycycline 100 mg PO BID #28 capsule L. Rhamnosus GG/Inulin [Culturelle Capsule] 1 each PO BID #28 cap.sprink Levofloxacin [Levaquin] 750 mg PO DAILY #14 tablet Home Medications: Amlodipine Besylate 10 mg PO DAILY 06/16/17 [History] Canagliflozin [Invokana] 300 mg PO DAILY 06/16/17 [History] Carvedilol Phosphate [Coreg Cr] 40 mg PO DAILY 06/16/17 [History] Esomeprazole Magnesium [Nexium] 40 mg PO DAILY 06/16/17 [History] Losartan/Hydrochlorothiazide [Losartan-Hctz 100-25 mg Tab] 1 tab PO DAILY [History] Sitagliptin Phos/Metformin HCl [Janumet Xr 50-500 mg Tablet] 1 tab PO BID [History] Terazosin HCl 2 mg PO DAILY 06/16/17 [History] Doxycycline 100 mg PO BID #28 capsule 06/19/17 [Rx] L. Rhamnosus GG/Inulin [Culturelle Capsule] 1 each PO BID #28 cap.sprink [Rx] Levofloxacin [Levaquin] 750 mg PO DAILY #14 tablet 06/19/17 [Rx] Allergies/Adverse Reactions: 3 Allergy/AdvReac Type Severity Reaction Status Date / Time No Known Allergies Allergy Verified 04/02/15 11:08 Procedures/tests Complete & Pending: Procedures Performed prior 72 hours Category Date Time Status EV echocardiogram Stat Y 06/18/17 10:15 Completed Date of admission: 06/16/17 18:55 Primary care physician: Maverick Zarate MD - Patient Status Disposition: Home Health Service Condition: Good Overall status at discharge: patient is progressing back to baseline - Discharge Instructions Follow Up With: Maverick Zarate MD [Primary Care Provider] - Additional Instructions: Continue doxycycline and Levaquin for 2 weeks. Follow-up with wound care weekly on Wednesdays with . Continue CUlturelle, ambulate with cast boot only. Not to ambulate without. - Diet and Activity Activity: increase activity as tolerated Diet: diabetic diet Hospital course: Mr. Reese is a 57 year old male with PMH of HTN, diabetes and neuropathy. He presents today with a three-week history of an ulcer of the lateral aspect of the left fifth toe. Was sent by Dr. Samaniego'filipe to be admitted, started on IV antibiotics in order to go to the OR the next morning for debridement. There was a stage III pressure ulcer present on lateral aspect of left foot with redness and induration. The patient was admitted to the hospital and started on IV vancomycin, Zosyn was given by the ER which was later switched to cefepime. On the third day, she was switched to doxycycline alone. Laboratory is reporting possible alpha streptococcus growing, the final culture report and sensitivity will be ready within the next few days as the sample was sent to another laboratory to be further studied. X-ray of the foot showed: Soft tissue defect over the lateral aspect of the foot , compatible with ulcer. Underlying this site, there is a lucency with irregular sclerosis involving the base the 5th metatarsal. Underwent surgical debridement on 06/17/2017. During the surgical wound there was no evidence of possible osteomyelitis prior prescribed on the x-ray. The patient had bilateral lower extremity swelling, an echocardiogram was performed showing an ejection fraction of 60% and mild diastolic dysfunction. Podiatry is recommended to discharge the patient, to continue wound VAC and to start Levaquin as an outpatient as well. Will need to be seen in wound care weekly on Wednesdays with . - Time Spent with Patient Total time spent providing and/or coordinating discharge services: Greater than 30 minutes (40 min) - Constitutional Vitals: Temp Pulse Resp BP Pulse Ox 98.2 F 73 15 133/78 94 06/19/17 07:32 06/19/17 07:32 06/19/17 07:32 06/19/17 07:32 06/19/17 07:32 General appearance: Present: cooperative, A&O X 3, no acute distress, answers questions appropriately Exam: - Head Head exam: Present: atraumatic, normocephalic - Eye Eye exam: Present: PERRL, conjuntiva pink, sclera anicteric Pupils: Present: PERRL - Neck Neck exam general surgery: Present: supple, trachea midline. Absent: lymphadenopathy - Respiratory Respiratory exam: Present: CTAB. Absent: accessory muscle use, rales, rhonchi, wheezes - Cardiovascular Cardiovascular exam: Present: RRR, +S1, +S2. Absent: diastolic murmur, gallop, rubs, systolic murmur - GI/Abdominal GI/Abdominal exam: Present: normal bowel sounds, soft, no peritoneal signs. Absent: distended, tenderness - Extremities Exam Extremities exam: Present: warm, radial pulses palpable and symmetrical. Absent : calf tenderness, cyanotic, pedal edema - Neurological Exam Neurological exam: Present: CN II-XII intact, oriented X3, no focal deficits. Absent: pronater drift, facial droop, speech deficit Additional comments: wound vac in place in the left foot
[2017-06-19] MEDS: amLODIPine 5 MG TABLET PO SCH (08:11)
--- NOTE | 2017-06-19 08:13 | Physician Discharge Referral ---
Home Health/Hosp Referral Info Transfer to: Home Health Provider in Charge Post Discharge: PCP - Diagnosis (1) Diabetic foot infection Status: Acute (2) Cellulitis Status: Acute (3) HTN (hypertension) Status: Acute (4) DM (diabetes mellitus) Status: Acute - Respiratory Orders Smoking Cessation: Smoking cessation has been advised. For more information, call the [place] Tobacco Quit Line at 6-312-MSGT-NOW. - Services Needed Following services are medically necessary services: Nursing, Home Health Aide, Physical Therapy Home Care Orders: Continue doxycycline and Levaquin for 2 weeks. Follow-up with wound care weekly on Wednesdays with . Continue CUlturelle, ambulate with cast boot only. Not to ambulate without. Wound VAC care per podiatry instructions - Transfer Medications Prescriptions: Doxycycline 100 mg PO BID #28 capsule L. Rhamnosus GG/Inulin [Culturelle Capsule] 1 each PO BID #28 cap.sprink Levofloxacin [Levaquin] 750 mg PO DAILY #14 tablet Home Medications: Amlodipine Besylate 10 mg PO DAILY 06/16/17 [History] Canagliflozin [Invokana] 300 mg PO DAILY 06/16/17 [History] Carvedilol Phosphate [Coreg Cr] 40 mg PO DAILY 06/16/17 [History] Esomeprazole Magnesium [Nexium] 40 mg PO DAILY 06/16/17 [History] Losartan/Hydrochlorothiazide [Losartan-Hctz 100-25 mg Tab] 1 tab PO DAILY [History] Sitagliptin Phos/Metformin HCl [Janumet Xr 50-500 mg Tablet] 1 tab PO BID [History] Terazosin HCl 2 mg PO DAILY 06/16/17 [History] Doxycycline 100 mg PO BID #28 capsule 06/19/17 [Rx] L. Rhamnosus GG/Inulin [Culturelle Capsule] 1 each PO BID #28 cap.sprink [Rx] Levofloxacin [Levaquin] 750 mg PO DAILY #14 tablet 06/19/17 [Rx] Allergies/Adverse Reactions: 3 Allergy/AdvReac Type Severity Reaction Status Date / Time No Known Allergies Allergy Verified 04/02/15 11:08 Certification: Further, I certify that my clinical findings support that this patient is homebound (i.e. absences from home require considerable and taxing effort and are for medical reasons or temple services or infrequently or short duration when for other reasons) because: Homebound Reason: Post-surgery restriction and or conditions limit ability to leave home Attestation: My signature below is to certify that this patient is under my care and that I, or nurse practitioner, or a physician's speech language pathology assistant working with me, has a face-to -face encounter with this patient.
[2017-06-19] MEDS: Insulin LISPRO 300 UNITS/3 ML VIAL SQ SCH ×2 (08:16→12:16)
[2017-06-19] MEDS: *HR* Heparin 5,000 UNIT/ML VIAL SQ SCH (08:18)
[2017-06-19] MEDS: Doxycycline 100 MG in 0.9 % Sodium Chloride Mini Bag 100 ML IVPB SCH (12:24)
[2017-06-19 15:17] VITALS: BP 140/89
== END 2017-06-19 17:20 | disposition home health service (06) ==
LOC: EMEROO 14:46 → 3ANU 14:46 → SUATTDRO 18:55 → 3ANU 19:39
PROVIDERS: ADMIT Internal Medicine; ATTEND Internal Medicine

== ENCOUNTER 2019-06-22 12:47 | Inpatient (IN) ==
[2019-06-22] MEDS ORDERED: Piperacillin/Tazobactam 3.375 GM in 0.9 % Sodium Chloride Mini Bag 100 ML IVPB ONE (13:09)
[2019-06-22 13:38] LABS: Basophils # 0.1 K/mcL (0.0-0.2); Basophils % 0.7 %; Eosinophils # 0.2 K/mcL (0.0-0.6); Eosinophils % 2.2 %; Hematocrit 42.3 % (37.5-50.1); Hemoglobin 14.3 g/dL (12.9-16.9); Lymphocytes # 1.5 K/mcL (0.6-4.6); Lymphocytes % 17.8 %; Mean Corpuscular HGB Conc 33.8 g/dL (31.6-35.5); Mean Corpuscular Hemoglobin 32.1 pg (28.0-33.3); Mean Corpuscular Volume 94.8 fL (83.0-100.0); Mean Platelet Volume 9.8 fL (9.4-12.4); Monocytes # 0.9 K/mcL (0.0-1.3); Monocytes % 10.4 %; Neutrophils # 5.6 K/mcL (1.6-8.9); Platelet Count 287 K/mcL (140-400); Red Blood Count 4.46 M/mcL (4.19-5.50); Red Cell Distribution Width 11.8 % (11.5-14.5); Segmented Neutrophils % 67.9 %; White Blood Count 8.3 K/mcL (4.3-11.1)
[2019-06-22 14:00] LABS: Alanine Aminotransferase 11 Units/L (7-52); Albumin 3.9 g/dL (3.5-5.7); Albumin/Globulin Ratio 1.2 (1.1-2.2); Alkaline Phosphatase 83 Units/L (34-104); Aspartate Amino Transferase 11 Units/L (13-39); BUN/Creatinine Ratio 17 (6-26); Bilirubin,Total 0.6 mg/dL (0.3-1.0); Blood Urea Nitrogen 16 mg/dL (6-20); C-Reactive Protein 92 mg/L (Less than 10); Calcium 9.9 mg/dL (8.6-10.3); Carbon Dioxide 29 mEq/L (23-29); Chloride 97 mEq/L (98-107); Globulin 3.3 g/dL (2.4-3.5); Glucose 237 mg/dL (70-105); Osmolality,Calculated 285 (280-300); Potassium 3.9 mEq/L (3.5-5.1); Sodium 133 mEq/L (136-145); Total Protein 7.2 g/dL (6.4-8.9); eGFR For African Americans > 60 (> 60); eGFR For Non-African Americans > 60 (> 60)
[2019-06-22] MEDS ORDERED: *HR* HYDROcodone/Acet 5/325 mg TABLET PO PRN (15:21)
[2019-06-22] MEDS ORDERED: Acetaminophen 325 MG TABLET PO PRN (15:21)
[2019-06-22] MEDS ORDERED: D5% in Water 1,000 ML IVC PRN (15:21)
[2019-06-22] MEDS ORDERED: Naloxone 0.4 MG/ML INJ IVP PRN (15:21)
[2019-06-22] MEDS ORDERED: *HR* Dextrose 50 % in Water (Syg) 50 ML SYRINGE IVP PRN (15:21)
[2019-06-22] MEDS ORDERED: Dextrose Gel 15 GM/37.5 ML TUBE PO PRN ×2 (15:21)
[2019-06-22] MEDS ORDERED: Ondansetron 4 MG/2 ML VIAL IVP PRN (15:21)
[2019-06-22] MEDS: Insulin LISPRO 300 UNITS/3 ML VIAL SQ SCH (16:58)
[2019-06-22] MEDS ORDERED: Perflutren Lipid Microsphere 1.3 ML in 0.9 % Sodium Chloride 8.7 ML IVP ONE ×2 (17:11→21:36)
[2019-06-22] MEDS: *HR* Heparin 5,000 UNIT/ML VIAL SQ SCH (17:44)
[2019-06-22] MEDS ORDERED: Vancomycin 500 MG in 0.9 % Sodium Chloride Mini Bag 100 ML IVPB ONE (17:58)
[2019-06-22] MEDS ORDERED: Insulin LISPRO 300 UNITS/3 ML VIAL SQ SCH (21:00)
[2019-06-22] MEDS: Piperacillin/Tazobactam 3.375 GM in 0.9 % Sodium Chloride Mini Bag 100 ML IVPB SCH (21:03)
[2019-06-22 23:48] LABS: Estimated Average Glucose 183 mg/dl
[2019-06-23 01:14] LABS: Basophils # 0.1 K/mcL (0.0-0.2); Eosinophils # 0.2 K/mcL (0.0-0.6); Eosinophils % 3.5 %; Hematocrit 38.4 % (37.5-50.1); Hemoglobin 13.4 g/dL (12.9-16.9); Immature Granulocytes % 1.2 % (0-4); Lymphocytes # 1.7 K/mcL (0.6-4.6); Lymphocytes % 28.6 %; Mean Corpuscular HGB Conc 34.9 g/dL (31.6-35.5); Mean Corpuscular Hemoglobin 32.1 pg (28.0-33.3); Mean Corpuscular Volume 91.9 fL (83.0-100.0); Mean Platelet Volume 9.9 fL (9.4-12.4); Monocytes # 0.6 K/mcL (0.0-1.3); Monocytes % 10.1 %; Neutrophils # 3.3 K/mcL (1.6-8.9); Platelet Count 266 K/mcL (140-400); Red Blood Count 4.18 M/mcL (4.19-5.50); Red Cell Distribution Width 11.9 % (11.5-14.5); Segmented Neutrophils % 55.6 %
[2019-06-23 01:15] LABS: INR 1.1
[2019-06-23 01:18] LABS: Activated Partial Thrombo Time 30.4 Seconds (26.0-36.0)
[2019-06-23 01:24] LABS: BUN/Creatinine Ratio 13 (6-26); Blood Urea Nitrogen 17 mg/dL (6-20); Calcium 9.7 mg/dL (8.6-10.3); Carbon Dioxide 27 mEq/L (23-29); Chloride 101 mEq/L (98-107); Glucose 189 mg/dL (70-105); Magnesium 1.8 mg/dL (1.6-2.6); Osmolality,Calculated 289 (280-300); Potassium 3.6 mEq/L (3.5-5.1); Sodium 136 mEq/L (136-145); eGFR For African Americans > 60 (> 60); eGFR For Non-African Americans 56 (> 60)
[2019-06-23] MEDS: Piperacillin/Tazobactam 3.375 GM in 0.9 % Sodium Chloride Mini Bag 100 ML IVPB SCH ×3 (04:33→20:31)
[2019-06-23] MEDS: *HR* Heparin 5,000 UNIT/ML VIAL SQ SCH ×2 (04:38→17:55)
[2019-06-23] MEDS: Insulin LISPRO 300 UNITS/3 ML VIAL SQ SCH ×3 (07:49→17:45)
[2019-06-23] MEDS: carvediloL 6.25 MG TABLET PO SCH ×2 (07:50→15:26)
[2019-06-23] MEDS ORDERED: Insulin LISPRO 300 UNITS/3 ML VIAL SQ SCH (08:15)
[2019-06-23] MEDS ORDERED: NON-FORMULARY MEDICATION 1 EACH EACH (Amlodipine Besylate 10 MG) PO SCH (09:00)
[2019-06-23] MEDS ORDERED: Ringers Solution, Lactated 1,000 ML IVC SCH (14:15)
[2019-06-23] MEDS ORDERED: Lidocaine -MPF 2% 2 ML VIAL ONE (17:59)
[2019-06-23] MEDS ORDERED: Dexamethasone 4 MG/ML VIAL ONE (17:59)
[2019-06-23] MEDS ORDERED: Ondansetron 4 MG/2 ML VIAL ONE (17:59)
[2019-06-23] MEDS ORDERED: *HR* Propofol 200 MG/20 ML VIAL IVP ONE (17:59)
[2019-06-23] MEDS ORDERED: Vancomycin 1,000 MG VIAL ONE (18:30)
[2019-06-23] MEDS ORDERED: *HR* Midazolam HCl 2 MG/2 ML VIAL ONE (18:49)
[2019-06-23] MEDS ORDERED: Acetaminophen IV 1,000 MG/100 ML INFUS..BTL ONE (18:50)
[2019-06-23] MEDS ORDERED: *HR* FentaNYL (PF) 100 MCG/2 ML VIAL ONE (18:53)
[2019-06-23] MEDS ORDERED: Insulin DETEMIR 100 UNIT/ML X5UNITS SQ SCH (21:00)
[2019-06-24 05:21] LABS: Basophils # 0.1 K/mcL (0.0-0.2); Basophils % 0.7 %; Hemoglobin 13.9 g/dL (12.9-16.9); Lymphocytes # 0.9 K/mcL (0.6-4.6); Lymphocytes % 12.9 %; Mean Corpuscular HGB Conc 33.1 g/dL (31.6-35.5); Mean Corpuscular Hemoglobin 31.9 pg (28.0-33.3); Mean Corpuscular Volume 96.3 fL (83.0-100.0); Mean Platelet Volume 9.7 fL (9.4-12.4); Monocytes # 0.3 K/mcL (0.0-1.3); Monocytes % 4.4 %; Neutrophils # 5.5 K/mcL (1.6-8.9); Platelet Count 298 K/mcL (140-400); Red Blood Count 4.36 M/mcL (4.19-5.50); Red Cell Distribution Width 11.9 % (11.5-14.5); White Blood Count 6.8 K/mcL (4.3-11.1)
[2019-06-24 05:40] LABS: BUN/Creatinine Ratio 27 (6-26); Blood Urea Nitrogen 25 mg/dL (6-20); Calcium 9.4 mg/dL (8.6-10.3); Carbon Dioxide 22 mEq/L (23-29); Chloride 99 mEq/L (98-107); Glucose 303 mg/dL (70-105); Magnesium 1.9 mg/dL (1.6-2.6); Osmolality,Calculated 296 (280-300); Phosphorous 3.8 mg/dL (2.7-4.5); Potassium 4.6 mEq/L (3.5-5.1); Sodium 135 mEq/L (136-145); eGFR For African Americans > 60 (> 60); eGFR For Non-African Americans > 60 (> 60)
[2019-06-24] MEDS: *HR* Heparin 5,000 UNIT/ML VIAL SQ SCH ×2 (05:40→17:35)
[2019-06-24] MEDS: Insulin LISPRO 300 UNITS/3 ML VIAL SQ SCH ×3 (08:39→17:34)
[2019-06-24] MEDS: carvediloL 6.25 MG TABLET PO SCH ×2 (08:44→17:35)
[2019-06-24] MEDS: Piperacillin/Tazobactam 3.375 GM in 0.9 % Sodium Chloride Mini Bag 100 ML IVPB SCH ×2 (08:45→16:27)
[2019-06-24] MEDS ORDERED: Insulin LISPRO 300 UNITS/3 ML VIAL SQ SCH (17:00)
[2019-06-24] MEDS ORDERED: *HR* Dextrose 50 % in Water (Syg) 50 ML SYRINGE IVP PRN (18:36)
[2019-06-24] MEDS ORDERED: Acetaminophen 325 MG TABLET PO PRN (18:36)
[2019-06-24] MEDS ORDERED: D5% in Water 1,000 ML IVC PRN (18:36)
[2019-06-24] MEDS ORDERED: *HR* HYDROcodone/Acet 5/325 mg TABLET PO PRN (18:36)
[2019-06-24] MEDS ORDERED: Naloxone 0.4 MG/ML INJ IVP PRN (18:36)
[2019-06-24] MEDS ORDERED: Dextrose Gel 15 GM/37.5 ML TUBE PO PRN ×2 (18:36)
[2019-06-24] MEDS ORDERED: Ondansetron 4 MG/2 ML VIAL IVP PRN (18:36)
[2019-06-24] MEDS ORDERED: Insulin DETEMIR 100 UNIT/ML X5UNITS SQ SCH (21:00)
[2019-06-25] MEDS: *HR* Heparin 5,000 UNIT/ML VIAL SQ SCH ×2 (05:58→16:59)
[2019-06-25] MEDS: Piperacillin/Tazobactam 3.375 GM in 0.9 % Sodium Chloride Mini Bag 100 ML IVPB SCH ×4 (07:56→23:57)
[2019-06-25] MEDS: carvediloL 6.25 MG TABLET PO SCH ×2 (07:56→16:59)
[2019-06-25] MEDS ORDERED: Insulin DETEMIR 100 UNIT/ML X5UNITS SQ SCH (09:00)
[2019-06-25] MEDS: Insulin LISPRO 300 UNITS/3 ML VIAL SQ SCH ×3 (12:06→17:00)
[2019-06-25] MEDS: Insulin DETEMIR 100 UNIT/ML X5UNITS SQ SCH (21:21)
[2019-06-26] MEDS: *HR* Heparin 5,000 UNIT/ML VIAL SQ SCH ×2 (06:15→18:10)
[2019-06-26 07:38] LABS: Basophils # 0.1 K/mcL (0.0-0.2); Basophils % 0.9 %; Eosinophils # 0.2 K/mcL (0.0-0.6); Eosinophils % 2.9 %; Hematocrit 40.2 % (37.5-50.1); Hemoglobin 13.8 g/dL (12.9-16.9); Immature Granulocytes % 1.8 % (0-4); Lymphocytes # 1.6 K/mcL (0.6-4.6); Lymphocytes % 29.4 %; Mean Corpuscular HGB Conc 34.3 g/dL (31.6-35.5); Mean Corpuscular Hemoglobin 31.7 pg (28.0-33.3); Mean Corpuscular Volume 92.4 fL (83.0-100.0); Mean Platelet Volume 9.8 fL (9.4-12.4); Monocytes # 0.7 K/mcL (0.0-1.3); Monocytes % 12.6 %; Neutrophils # 2.9 K/mcL (1.6-8.9); Platelet Count 317 K/mcL (140-400); Red Blood Count 4.35 M/mcL (4.19-5.50); Red Cell Distribution Width 11.9 % (11.5-14.5); Segmented Neutrophils % 52.4 %; White Blood Count 5.5 K/mcL (4.3-11.1)
[2019-06-26 07:49] LABS: BUN/Creatinine Ratio 13 (6-26); Blood Urea Nitrogen 10 mg/dL (6-20); Calcium 9.4 mg/dL (8.6-10.3); Carbon Dioxide 27 mEq/L (23-29); Chloride 105 mEq/L (98-107); Glucose 132 mg/dL (70-105); Magnesium 1.9 mg/dL (1.6-2.6); Osmolality,Calculated 289 (280-300); Phosphorous 2.7 mg/dL (2.7-4.5); Potassium 3.7 mEq/L (3.5-5.1); Sodium 139 mEq/L (136-145); eGFR For African Americans > 60 (> 60); eGFR For Non-African Americans > 60 (> 60)
[2019-06-26] MEDS: Insulin LISPRO 300 UNITS/3 ML VIAL SQ SCH ×6 (08:14→17:40)
[2019-06-26] MEDS: carvediloL 6.25 MG TABLET PO SCH ×2 (08:30→17:22)
[2019-06-26] MEDS: Piperacillin/Tazobactam 3.375 GM in 0.9 % Sodium Chloride Mini Bag 100 ML IVPB SCH ×2 (08:31→14:43)
[2019-06-26] MEDS: Insulin DETEMIR 100 UNIT/ML X5UNITS SQ SCH ×2 (08:40→22:24)
[2019-06-26] MEDS: amLODIPine 5 MG TABLET PO SCH (14:43)
[2019-06-27] MEDS: Piperacillin/Tazobactam 3.375 GM in 0.9 % Sodium Chloride Mini Bag 100 ML IVPB SCH ×3 (00:02→19:54)
[2019-06-27] MEDS: *HR* Heparin 5,000 UNIT/ML VIAL SQ SCH ×2 (06:06→17:14)
[2019-06-27] MEDS ORDERED: *HR* Propofol 200 MG/20 ML VIAL IVP ONE (07:01)
[2019-06-27] MEDS ORDERED: *HR* Midazolam HCl 2 MG/2 ML VIAL ONE (07:01)
[2019-06-27] MEDS ORDERED: Ondansetron 4 MG/2 ML VIAL ONE (07:01)
[2019-06-27] MEDS ORDERED: Ketorolac 30 MG/ML VIAL ONE (07:01)
[2019-06-27] MEDS ORDERED: Lidocaine -MPF 2% 2 ML VIAL ONE (07:01)
[2019-06-27] MEDS ORDERED: Dexamethasone 4 MG/ML VIAL ONE (07:01)
[2019-06-27] MEDS ORDERED: *HR* FentaNYL (PF) 100 MCG/2 ML VIAL ONE (07:01)
[2019-06-27] MEDS ORDERED: Vancomycin 1,000 MG VIAL ONE (07:44)
[2019-06-27] MEDS ORDERED: Propofol 500 MG/50 ML INFUS..BTL ONE (08:13)
[2019-06-27] MEDS ORDERED: Insulin DETEMIR 100 UNIT/ML X5UNITS SQ SCH (09:00)
[2019-06-27] MEDS: Insulin LISPRO 300 UNITS/3 ML VIAL SQ SCH ×6 (09:04→17:14)
[2019-06-27] MEDS: carvediloL 6.25 MG TABLET PO SCH ×2 (09:04→17:11)
[2019-06-27] MEDS ORDERED: D5% in Water 1,000 ML IVC PRN (09:50)
[2019-06-27] MEDS ORDERED: Acetaminophen 325 MG TABLET PO PRN (09:50)
[2019-06-27] MEDS ORDERED: Dextrose Gel 15 GM/37.5 ML TUBE PO PRN ×2 (09:50)
[2019-06-27] MEDS ORDERED: *HR* Dextrose 50 % in Water (Syg) 50 ML SYRINGE IVP PRN (09:50)
[2019-06-27] MEDS ORDERED: *HR* HYDROcodone/Acet 5/325 mg TABLET PO PRN (09:50)
[2019-06-27] MEDS ORDERED: Ondansetron 4 MG/2 ML VIAL IVP PRN (09:50)
[2019-06-27] MEDS ORDERED: Naloxone 0.4 MG/ML INJ IVP PRN (09:50)
[2019-06-27] MEDS ORDERED: Piperacillin/Tazobactam 3.375 GM VIAL ONE (17:03)
[2019-06-27] MEDS: amLODIPine 5 MG TABLET PO SCH (19:55)
[2019-06-27] MEDS: Insulin DETEMIR 100 UNIT/ML X5UNITS SQ SCH (21:52)
[2019-06-28] MEDS: Piperacillin/Tazobactam 3.375 GM in 0.9 % Sodium Chloride Mini Bag 100 ML IVPB SCH ×2 (00:28→07:52)
[2019-06-28] MEDS: *HR* Heparin 5,000 UNIT/ML VIAL SQ SCH ×2 (06:31→16:48)
[2019-06-28] MEDS: amLODIPine 5 MG TABLET PO SCH (07:50)
[2019-06-28] MEDS: carvediloL 6.25 MG TABLET PO SCH ×2 (07:51→16:49)
[2019-06-28] MEDS: Insulin LISPRO 300 UNITS/3 ML VIAL SQ SCH ×7 (07:51→19:08)
[2019-06-28] MEDS: Insulin DETEMIR 100 UNIT/ML X5UNITS SQ SCH ×2 (07:59→19:42)
[2019-06-28] MEDS ORDERED: amLODIPine 5 MG TABLET PO SCH (09:00)
[2019-06-28 10:05] LABS: Hematocrit 37.5 % (37.5-50.1); Hemoglobin 12.7 g/dL (12.9-16.9); Mean Corpuscular HGB Conc 33.9 g/dL (31.6-35.5); Mean Corpuscular Hemoglobin 31.5 pg (28.0-33.3); Mean Corpuscular Volume 93.1 fL (83.0-100.0); Mean Platelet Volume 9.8 fL (9.4-12.4); Platelet Count 305 K/mcL (140-400); Red Blood Count 4.03 M/mcL (4.19-5.50); White Blood Count 8.1 K/mcL (4.3-11.1)
[2019-06-28 10:31] LABS: BUN/Creatinine Ratio 11 (6-26); Blood Urea Nitrogen 10 mg/dL (6-20); Calcium 9.1 mg/dL (8.6-10.3); Carbon Dioxide 29 mEq/L (23-29); Chloride 105 mEq/L (98-107); Glucose 95 mg/dL (70-105); Osmolality,Calculated 293 (280-300); Potassium 3.3 mEq/L (3.5-5.1); Sodium 142 mEq/L (136-145); eGFR For African Americans > 60 (> 60); eGFR For Non-African Americans > 60 (> 60)
[2019-06-28] MEDS ORDERED: Lidocaine -MPF 1% 5 ML AMPUL INFILT ONE (11:09)
[2019-06-28] MEDS: levoFLOXacin 750 MG/150 ML 750 MG/150 ML BAG IVPB SCH (12:05)
[2019-06-29 04:16] LABS: Hematocrit 39.8 % (37.5-50.1); Hemoglobin 13.5 g/dL (12.9-16.9); Mean Corpuscular HGB Conc 33.9 g/dL (31.6-35.5); Mean Corpuscular Hemoglobin 31.4 pg (28.0-33.3); Mean Corpuscular Volume 92.6 fL (83.0-100.0); Mean Platelet Volume 9.9 fL (9.4-12.4); Platelet Count 318 K/mcL (140-400); Red Cell Distribution Width 12.4 % (11.5-14.5); White Blood Count 7.5 K/mcL (4.3-11.1)
[2019-06-29 04:38] LABS: BUN/Creatinine Ratio 14 (6-26); Blood Urea Nitrogen 11 mg/dL (6-20); C-Reactive Protein 6 mg/L (Less than 10); Calcium 9.5 mg/dL (8.6-10.3); Carbon Dioxide 25 mEq/L (23-29); Chloride 107 mEq/L (98-107); Glucose 191 mg/dL (70-105); Osmolality,Calculated 293 (280-300); Sodium 139 mEq/L (136-145); eGFR For African Americans > 60 (> 60); eGFR For Non-African Americans > 60 (> 60)
[2019-06-29] MEDS: *HR* Heparin 5,000 UNIT/ML VIAL SQ SCH ×2 (06:00→18:01)
[2019-06-29] MEDS: Insulin LISPRO 300 UNITS/3 ML VIAL SQ SCH ×6 (10:53→16:32)
[2019-06-29] MEDS: levoFLOXacin 750 MG/150 ML 750 MG/150 ML BAG IVPB SCH (10:54)
[2019-06-29] MEDS: Insulin DETEMIR 100 UNIT/ML X5UNITS SQ SCH (10:56)
[2019-06-29] MEDS: amLODIPine 5 MG TABLET PO SCH (10:56)
[2019-06-29] MEDS: carvediloL 6.25 MG TABLET PO SCH ×2 (10:56→17:58)
[2019-06-29 12:08] VITALS: BP 134/77
[2019-06-29] MEDS ORDERED: Aminoglycoside Consult 1 EACH MC ONE (20:07)
== END 2019-06-29 20:08 | disposition home health service (06) | DRG 623 ==
LOC: EMEROOARM 12:47 → 3ANU 12:47 → SUATTDRO 14:38 → 3ANU 15:18 → SUATTDRO 06-24 13:39
PROVIDERS: ADMIT Internal Medicine; ATTEND Family Medicine